=== PATIENT | female | born 1985 | race Caucasian/White ===

== ENCOUNTER 2017-02-11 23:36 | Emergency (ER) | payer OTHER ==
[~2017-02-11] VITALS: Ht 157.5 cm; Wt 75.0 kg
[2017-02-12 00:22] VITALS: BP 123/77; PULSE 92; RESP 16; TEMP 98.1; O2SAT 99
[2017-02-12 00:26] VITALS: RESP 16; O2SAT 97
--- NOTE | 2017-02-12 00:39 | RADRPT ---
EXAM DATE/TIME: 02/12/2017 00:24 [facility] COMPARISON: No previous studies available for comparison. INDICATIONS : Trauma; fall. ETOH. RADIATION DOSE: 56.35 CTDIvol (mGy) MEDICAL HISTORY : Non-responsive. SURGICAL HISTORY : Non-responsive. ENCOUNTER: Initial ACUITY: 1 day PAIN SCALE: Non-responsive LOCATION: cranial TECHNIQUE: Multiple contiguous axial images were obtained of the head. Using automated exposure control and adj ustment of the mA and/or kV according to patient size, radiation dose was kept as low as reasonably a chievable to obtain optimal diagnostic quality images. FINDINGS: CEREBRUM: The ventricles are normal for age. No evidence of midline shift, mass lesion, hemorrhage or acute in farction. No extra-axial fluid collections are seen. POSTERIOR FOSSA: The cerebellum and brainstem are intact. The 4th ventricle is midline. The cerebellopontine angle i s unremarkable. EXTRACRANIAL: The visualized portion of the orbits is intact. Right forehead soft tissue defect. No radiopaque fore ign body. SKULL: The calvaria is intact. No evidence of skull fracture. CONCLUSION: 1. Right forehead soft tissue defect. No radiopaque foreign body. 2. No acute intracranial abnormality. Kevon Joshi Jr., MD on February 12, 2017 at 0:36 Board Certified Radiologist. This report was verified electronically.
--- NOTE | 2017-02-12 00:49 | PD ---
HPI Chief Complaint: Fall Time Seen by Provider: 00:17 Travel History International Travel<30 days: No Contact w/Intl Traveler<30days: No Traveled to known affect area: No History of Present Illness HPI 31-year-old female here after fall and head injury. Patient was reportedly drinking heavily at a strip club when she fell from standing position and hit her head on the corner of a table. Witnessed. No LOC. Patient was reportedly quite agitated per EMS. Here in the emergency department she is calm, emotional and intoxicated but cooperative. She notes a headache, and a laceration to the forehead. Complains of neck pain. Denies any other injuries. Feels that she needs to urinate. PFSH Past Medical History Medical History: Unable to Obtain Past Surgical History Surgical History: Unable to Obtain Social History Alcohol Use: Yes Tobacco Use: No Substance Use: No Allergies-Medications (Allergen,Severity, Reaction): Coded Allergies: UNOBTAINABLE (Unverified , 02/12/17) Reported Meds & Prescriptions Reported Meds & Active Scripts Active Active Prescriptions or Reported Medications Unobtainable Review of Systems ROS Limitations: Intoxication, Poor Historian Physical Exam Exam Limitations: Intoxication, Poor Historian Narrative GENERAL: Middle-aged female in no acute distress SKIN: Focused skin assessment warm/dry. HEAD: 1.5 cm laceration to the forehead. Normocephalic. EYES: Pupils equal and round. No scleral icterus. No injection or drainage. ENT: No nasal bleeding or discharge. Mucous membranes pink and moist. NECK: Supple with mild diffuse midline tenderness to palpation. In cervical collar CARDIOVASCULAR: Regular rate and rhythm. RESPIRATORY: No accessory muscle use. GASTROINTESTINAL: Abdomen soft, non-tender, nondistended. MUSCULOSKELETAL: No obvious deformities. No edema. NEUROLOGICAL: Awake and alert, answers questions and follows commands appropriately though it does not recall the events of this evening. Motor grossly within normal limits. Speech is slurred PSYCHIATRIC: insight and judgment poor Data Data Last Documented VS Vital Signs Date Time Temp Pulse Resp B/P Pulse Ox O2 Delivery O2 Flow Rate FiO2 02/12/17 00:26 16 97 Room Air 02/12/17 00:22 98.1 92 123/[address] Brain W/O Iv Contrast(Rout) (02/12/17 00:17) Ct Cerv Spine W/O Contrast (02/12/17 00:17) Oximetry (02/12/17 00:17) [facility] Medical Decision Making Medical Screen Exam Complete: Yes Emergency Medical Condition: Yes Medical Record Reviewed: Yes Differential Diagnosis 31-year-old female here after fall from standing with closed head injury, heavily intoxicated. Differential includes alcohol intoxication, closed head injury, skull fracture, ICH, cervical spine fracture, forehead laceration. Narrative Course Repaired, please see procedure note. CT of the brain and cervical spine were negative. Patient is here with , able to ambulate independently will be discharged home. Procedures Procedure Narrative LACERATION LOCATION: Forehead LENGTH: 1.5 cm NUMBER OF STITCHES/DEBBIE: Dermabond REPAIR: The area of the laceration was prepped with Betadine and sterilely draped. he wound was copiously irrigated and explored without evidence of foreign body, tendon injury or neurovascular injury. The wound was closed using Dermabond. This was a single layer repair. A sterile dressing was applied. The patient was advised to keep the dressing clean and dry. Patient tolerated the procedure well. Diagnosis Primary Impression: Closed head injury Qualified Code: S09.90XA - Closed head injury, initial encounter Additional Impressions: Alcohol intoxication Qualified Code: F10.120 - Alcohol intoxication, uncomplicated Forehead laceration Qualified Code: S01.81XA - Forehead laceration, initial encounter Referrals: Primary Care Physician as needed Additional Instructions: Cut back on her alcohol use. You may shower and bathe like normal. Med/Other Pt SpecificInfo: No Change to Meds Scripts Unable to Obtain Active Prescriptions or Reported Meds Disposition: 01 DISCHARGE HOME Condition: Stable Melissa Gillette MD Feb 12, 2017 00:49
--- NOTE | 2017-02-12 00:55 | RADRPT ---
EXAM DATE/TIME: 02/12/2017 00:25 [facility] COMPARISON: No previous studies available for comparison. INDICATIONS : Trauma; fall. ETOH. RADIATION DOSE: 30.38 CTDIvol (mGy) MEDICAL HISTORY : Non-responsive. SURGICAL HISTORY : Non-responsive. ENCOUNTER: Initial ACUITY: 1 day PAIN SCALE: Non-responsive LOCATION: neck TECHNIQUE: Volumetric scanning of the cervical spine was performed. Multiplanar reconstructions in the sagittal, coronal and oblique axial planes were performed. Using automated exposure control and adjustment o f the mA and/or kV according to patient size, radiation dose was kept as low as reasonably achievable to obtain optimal diagnostic quality images. FINDINGS: VERTEBRAE: Normal vertebral body height. ALIGNMENT: No evidence of subluxation. Loss of the natural lordosis. C2-C3: The bony spinal canal is normal in size. No evidence of disc bulge or herniation. The neural forami na are bilaterally patent. C3-C4: The bony spinal canal is normal in size. No evidence of disc bulge or herniation. The neural forami na are bilaterally patent. C4-C5: The bony spinal canal is normal in size. No evidence of disc bulge or herniation. The neural forami na are bilaterally patent. C5-C6: The bony spinal canal is normal in size. No evidence of disc bulge or herniation. The neural forami na are bilaterally patent. C6-C7: The bony spinal canal is normal in size. No evidence of disc bulge or herniation. The neural forami na are bilaterally patent. C7-T1: The bony spinal canal is normal in size. No evidence of disc bulge or herniation. The neural forami na are bilaterally patent. CONCLUSION: 1. Loss of the natural lordosis which may simply be positional in nature. Otherwise, unremarkable marisa Joshi Jr., MD on February 12, 2017 at 0:52 Board Certified Radiologist. This report was verified electronically.
== END 2017-02-12 01:48 | disposition home or self-care (01) ==
LOC: NEPD 23:36 → EDBD 23:36 → NEPD 02-12 01:48
DX: S01.81XA Laceration without foreign body of other part of head, initial encounter (principal); S09.90XA Unspecified injury of head, initial encounter; F10.120 Alcohol abuse with intoxication, uncomplicated; M54.2 Cervicalgia; W01.190A Fall on same level from slipping, tripping and stumbling with subsequent striking against furniture, initial encounter; Y92.29 Other specified public building as the place of occurrence of the external cause
CPT/HCPCS: 12011; 70450; 72125